=== PATIENT | female | born 1995 | race Caucasian/White ===

== ENCOUNTER 2019-05-14 23:51 | Emergency (ER) | payer SELFPAY ==
[~2019-05-14] VITALS: Ht 157.5 cm; Wt 59.0 kg
[2019-05-15] MEDS ORDERED: KETOROLAC 30MG/ML VIAL IM ONE (03:00)
[2019-05-15 03:18] VITALS: BP 119/65
== END 2019-05-15 03:22 | disposition home or self-care (01) ==
LOC: ER 23:51
DX: S19.80XA Other specified injuries of unspecified part of neck, initial encounter (principal); S39.82XA Other specified injuries of lower back, initial encounter; M79.10 Myalgia, unspecified site; V49.40XA Driver injured in collision with unspecified motor vehicles in traffic accident, initial encounter; Y93.89 Activity, other specified; Y92.410 Unspecified street and highway as the place of occurrence of the external cause; Z87.828 Personal history of other (healed) physical injury and trauma
CPT/HCPCS: 81025; 96372; 99283; J1885